=== PATIENT | female | born 2000 | race Caucasian/White ===

== ENCOUNTER 2024-05-16 23:30 | Emergency (ER) | payer OTHER ==
[~2024-05-16] VITALS: Ht 162.6 cm; Wt 104.3 kg
[2024-05-16 23:35] VITALS: BP 144/75; PULSE 57; RESP 18; TEMP 98.7; O2SAT 99
[2024-05-17] MEDS: predniSONE 20 MG TAB PO ONE (00:39)
[2024-05-17 00:58] LABS: FLU A ANTIGEN negative (NEGATIVE); FLU B ANTIGEN NEGATIVE (NEGATIVE)
[2024-05-17] MEDS: ALBUTEROL SULFATE/IPRATROPIU 3 ML SOL IH ONE (01:18)
[2024-05-17 01:21] VITALS: PULSE 60; RESP 13; O2SAT 99
[2024-05-17] MEDS ORDERED: PRED20TA5 PO (01:27)
[2024-05-17] MEDS ORDERED: DEXT118S47 PO (01:27)
[2024-05-17] MEDS ORDERED: AZIT250T4 PO (01:27)
[2024-05-17 01:35] VITALS: BP 135/57; PULSE 82; RESP 11; TEMP 98; O2SAT 99
== END 2024-05-17 01:35 | disposition home or self-care (01) ==
LOC: MED 23:30
DX: J40 Bronchitis, not specified as acute or chronic (principal); Z20.822 Contact with and (suspected) exposure to COVID-19; Z79.2 Long term (current) use of antibiotics; Z79.899 Other long term (current) drug therapy
CPT/HCPCS: 71045; 82948; 87426; 87804; 93005; 94640; 99285; J7512; Q0092